=== PATIENT | male | born 1955 | race Caucasian/White ===

== ENCOUNTER 2021-07-12 17:31 | Emergency (ER) | payer MEDICAID, SELFPAY ==
[~2021-07-12] VITALS: Ht 180.3 cm; Wt 97.5 kg
[2021-07-12 17:38] VITALS: BP_SYST 130
--- NOTE | 2021-07-12 17:38 | NUR ---
Patient to ER bed 05 to gown for evaluation. Side rails up.
--- NOTE | 2021-07-12 17:40 | NUR ---
DR HOLMAN AT BEDSIDE
--- NOTE | 2021-07-12 17:40 | NUR ---
TO CT SCAN
--- NOTE | 2021-07-12 17:51 | NUR ---
PT RETURNS FROM CT SCAN
--- NOTE | 2021-07-12 17:51 | NUR ---
ICE TO LEFT FOREHEAD
--- NOTE | 2021-07-12 18:25 | NUR ---
LAB AND X RAY AT BEDSIDE
[2021-07-12 18:46] LABS: BASOPHILS # (AUTO) 0.1 K/uL (0.0-0.2); BASOPHILS % (AUTO) 0.5 % (0.0-2.0); EOSINOPHILS % (AUTO) 0.1 % (0.0-4.0); HEMATOCRIT 35.1 % (36-54); HEMOGLOBIN 11.6 g/dL (14.0-18.0); LYMPHOCYTES % (AUTO) 8.5 % (20.5-51.5); MEAN CORPUSCULAR HEMOGLOBIN 30 pg (27-31); MEAN CORPUSCULAR HGB CONC 33 % (32-36); MEAN CORPUSCULAR VOLUME 92 fL (79.0-98.0); MONOCYTES % (AUTO) 8.1 % (1.7-9.3); NEUTROPHILS # (AUTO) 9.7 K/uL (1.8-7.7); NEUTROPHILS % (AUTO) 82.8 % (40.0-70.0); PLATELET COUNT (AUTO) 265 K/uL (130-430); RED BLOOD CELL COUNT(AUTO) 3.84 MIL/uL (4.2-6.2); RED CELL DISTRIBUTION WIDTH 15.3 % (9.0-15.0); WHITE BLOOD COUNT (AUTO) 11.8 K/uL (4.8-10.8)
[2021-07-12 18:53] LABS: ANION GAP 10 (5-15); CALCIUM 8.2 mg/dL (8.4-11.0); CHLORIDE 100 mmol/L (98-107); GLUCOSE 91 mg/dL (70-99); POTASSIUM 5.2 mmol/L (3.5-5.1); SODIUM SERUM 137 mmol/L (136-145); UREA NITROGEN, BLOOD 15 mg/dL (8-21)
[2021-07-12 18:59] LABS: ALANINE AMINOTRANSFERASE 26 U/L (12-78); ALBUMIN 2.7 g/dL (3.4-4.8); ASPARTATE AMINOTRANSFERASE 28 U/L (10-37); TOTAL BILIRUBIN 0.5 mg/dL (0.0-1.0)
[2021-07-12 19:00] LABS: GFR AFRICAN AMERICAN 124 mL/min (>90)
[2021-07-12 19:01] LABS: ACETAMINOPHEN < 1 ug/mL (1-30); ALCOHOL, BLOOD < 3 mg/dL (<10)
--- NOTE | 2021-07-12 19:06 | NUR ---
REPORT TO ANAYA MARTINEZ.
--- NOTE | 2021-07-12 19:15 | NUR ---
Report received from MICHELLE Copeland for continuation of care
--- NOTE | 2021-07-12 19:17 | NUR ---
Pt asleep, comfortably in bed. no s/sx of respiratory distress or acute discomfort. awaiting for SS eval. will continue to monitor.
--- NOTE | 2021-07-12 19:28 | NUR ---
covid19 swab sent to lab
[2021-07-12 20:04] LABS: CKMB RELATIVE INDEX 0.7 (0.0-2.9); CREATINE KINASE MB 2.3 ng/mL (0-3.6)
--- NOTE | 2021-07-12 22:46 | NUR ---
Dr Draper at bedside speaking with pt
--- NOTE | 2021-07-12 23:03 | NUR ---
pt provided urine, urine sample sent to lab.
[2021-07-12 23:23] LABS: BARBITURATE, URINE NEGATIVE (NEG <=200); BENZODIAZEPINE, URINE POSITIVE (NEG <=150); CANNABINOID, URINE NEGATIVE (NEG <=50); COCAINE, URINE NEGATIVE (NEG <=150); METHAMPHETAMINES SCREEN,URINE NEGATIVE (NEG <=500); OPIATE, URINE NEGATIVE (NEG <=100); PHENCYCLIDINE SCREEN,URINE NEGATIVE (NEG <=25); UR TRICYCLIC ANTIDEPRESSANTS NEGATIVE (NEG <=300); URINE AMPHETAMINE NEGATIVE (NEG <=500); URINE METHADONE NEGATIVE (NEG <=200); URINE OXYCODONE SCREEN NEGATIVE (NEG <=100); URINE PROPOXYPHENE SCREEN NEGATIVE (NEG <=300)
[2021-07-12] MEDS ORDERED: NACL 0.9% 1,000 ML IV ONE (23:30)
[2021-07-13] MEDS ORDERED: DIPH-TET-PERTUS Vaccine 0.5 ML VIAL (ADACEL) I.M. ONE
--- NOTE | 2021-07-13 07:07 | NUR ---
Report given to MICHELLE Copeland for continuation of care
--- NOTE | 2021-07-13 07:45 | NUR ---
AWAITING MARINE DESIGN ENGINEER. PT AROSABLE CALM AND COOPERATIVE DENIES HI AND SI. EATING BREAKFAST
--- NOTE | 2021-07-13 08:25 | NUR ---
LEFT MESSAGE FOR CM
--- NOTE | 2021-07-13 08:54 | NUR ---
DENTAL APPLIANCE FIXER LEOLA HERE TO SEE PT
--- NOTE | 2021-07-13 09:46 | NUR ---
UPDATE GIVEN TO SOCIAL WORKERS. THEY ARE AT BEDSIDE WITH PT NOW
--- NOTE | 2021-07-13 10:51 | NUR ---
ORDER PLACED BY FOR PSYCH CONSULT
--- NOTE | 2021-07-13 11:40 | NUR ---
VS PT REMAINS CALM AND COOPERATIVE. PSYCH CONSULT CALLED.
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
--- NOTE | 2021-07-13 12:17 | NUR ---
Pt resting at this time, no s/s of distress noted,will cont to monitor
--- NOTE | 2021-07-13 13:08 | NUR ---
TOLERATED LUNCH REMAINS CALM COOPERATIVE REMAINS TO DENY SI AND HI. REMAIN WAITING PSYCH CONSULT.
--- NOTE | 2021-07-13 18:17 | NUR ---
remains calm cooperative eating at bedside
--- NOTE | 2021-07-13 19:13 | NUR ---
report to rissa
--- NOTE | 2021-07-13 19:19 | NUR ---
Report received from MICHELLE Juarez for continuation of care
--- NOTE | 2021-07-13 21:25 | NUR ---
Pt sleeping in bed comfortably, easily aroused by verbal and tactile stimuli. denies pain. awaiting dispo. will continue to monitor.
--- NOTE | 2021-07-13 23:26 | NUR ---
Pt given water, jello and pudding, consumed 100% no c/o n/v. pt anthony well. will continue to monitor.
--- NOTE | 2021-07-14 02:25 | NUR ---
Pt given snack, apple sauce, pudding and juice, consumed 100%, pt anthony well.
--- NOTE | 2021-07-14 05:25 | NUR ---
Pt sleeping comfortably in bed. nad. will continue to monitor.
--- NOTE | 2021-07-14 06:51 | NUR ---
Dr Walker at bedside speaking with pt
--- NOTE | 2021-07-14 07:02 | NUR ---
Report given to MICHELLE Mcneill for continuation of care
--- NOTE | 2021-07-14 07:06 | NUR ---
REPORT RECEIVED FOR CONTINUING CARE
--- NOTE | 2021-07-14 07:22 | NUR ---
PT PROVIDED WITH BREAKFAST TRAY
--- NOTE | 2021-07-14 09:10 | NUR ---
AIRPLANE MECHANIC HERE TO SPEAK WITH PATIENT
--- NOTE | 2021-07-14 10:23 | NUR ---
CORRUGATOR SUPERVISOR HERE TO SPEAK WITH PATIENT
--- NOTE | 2021-07-14 12:18 | NUR ---
College Intern MAE Mayen and Jun met with ED Dr. Stubbs to speak to him re. homeless pt. EVENTS ASSISTANT requested a pscy. eval due to pt. demonstrating confusion, inability to care for self, refusing to go to a prison and past dx. from [place] with unspecified psychosis not related to substance abuse. Dr. Stubbs will request a psyc consult. EVENTS ASSISTANT called [employer] with [facility] and spoke to a payroll secretary, and will send a updated version of the application. There are 60 people on the waitlist for these services and another barrier is pt. has not contact info for [facility] to follow up. EVENTS ASSISTANT called and left a message for [facility] Coordinator, Iliana Faye, gautam. [phone] Cell [phone] asking to review this case prior to submitting a referral. Additionally, EVENTS ASSISTANT [facility] [phone]. EVENTS ASSISTANT left a message asking them to run pts. info to see if he has had any prior DM interventions. Lastlly, EVENTS ASSISTANT will provide pt. with phone number for Medicare.
--- NOTE | 2021-07-14 12:45 | NUR ---
DR. BAUTISTA EVALUATING PT. PT PLACED ON 5150 FOR GD, DTS.
--- NOTE | 2021-07-14 13:49 | NUR ---
Lab Animal Technologist ENVIRONMENTAL SAMPLER spoke with ED Dr. Walker to discuss transportation assistance and referral to a correction. ENVIRONMENTAL SAMPLER met with patient at bedside to discuss transportation to a correction. Patient declined correction referral, and stated he has a vehicle in the parking lot and would be driving home. In an effort to obtain identifying information, ENVIRONMENTAL SAMPLER asked patient for description of his vehicle, and ENVIRONMENTAL SAMPLER and ekg tech Emely walked into parking lot with keys but unable to locate vehicle (description, alarm button on keys). Patient described Silver Romo, the keys provided by patient had a Jesse symbol. Following an internet search, a previous address of [facility] at [employer] [address] [employer] [facility]. ENVIRONMENTAL SAMPLER spoke with Art at ([employer]), he disclosed the property belonged to patients parents, but patient sold it in 2019. He was not able to provide any additional contact information. ENVIRONMENTAL SAMPLER met with patient, he was not able to recall living in [place], but did share his parents resided there prior to his fathers . ENVIRONMENTAL SAMPLER again informed the patient of transportation and correction availability, to which he again declined and stated he would like to go home to [place]. Patient was aware of where he was at this moment, but was unable to recall day or year (stated it was 2011). ENVIRONMENTAL SAMPLER informed MICHELLE Mcneill that Lab Animal Technologist was assessing options for transportation and correction, and MAE Herring would be consulted.
[2021-07-14] MEDS ORDERED: ALPRAZolam 0.25 MG TABLET PO ONE (14:00)
--- NOTE | 2021-07-14 14:27 | NUR ---
ADITHYA JACINTO AT [facility] FOR REPORT. PT TO BE ACCEPTED UNDER DR. GALLOWAY AND TO GO TO INTAKE FOR ADMISSION.
[2021-07-14 18:02] VITALS: BP_SYST 124
--- NOTE | 2021-07-14 18:02 | NUR ---
Patient to be transferred to [facility] Is being transferred due to higher level of care. Receiving facility has accepting physician and available space. ER physician has signed transfer form. Patient or responsible republican has agreed to transfer and signed form. Patient belongings inventoried and will be sent with patient. Copy of nursing notes, lab reports, EKG, Physicians Orders and X-rays to be sent with patient. Report called to OPHELIA at receiving facility. Receiving physician is DR. GALLOWAY. [facility] has been called for transfer.
== END 2021-07-14 18:02 ==
LOC: SED 17:31
DX: S00.83XA Contusion of other part of head, initial encounter (principal); S09.90XA Unspecified injury of head, initial encounter; Z20.822 Contact with and (suspected) exposure to COVID-19; W22.8XXA Striking against or struck by other objects, initial encounter; Y93.89 Activity, other specified; Y92.89 Other specified places as the place of occurrence of the external cause; Y99.8 Other external cause status
CPT/HCPCS: 36415; 70450; 70486; 71045; 76376; 80053; 80307; 82550; 82553; 85025; 87426; 90471; 90715; 96360; 99285; G0480; J7030; G0481; G0482